=== PATIENT | female | born 1975 | race Caucasian/White ===

== ENCOUNTER 2020-03-18 11:51 | Outpatient (CLI) | payer BC, SELFPAY ==
[2020-03-18 22:31] LABS: SARS-CoV-2 RNA PCR Negative
== END 2020-03-18 11:52 | disposition home or self-care (01) ==
LOC: CHSLAB 11:53
PROVIDERS: PCP Family Medicine; Visit Provider Family Medicine
DX: J01.80 Other acute sinusitis (principal); Z20.828 Contact with and (suspected) exposure to other viral communicable diseases
CPT/HCPCS: 87635; C9803; U0003

== ENCOUNTER 2020-07-14 14:34 | Outpatient (CLI) | payer OTHER, SELFPAY ==
[2020-07-14 15:38] LABS: SARS-CoV-2 Ag Negative (Negative)
[2020-07-15 18:20] LABS: SARS-CoV-2 RNA PCR Negative
== END 2020-07-14 14:35 | disposition home or self-care (01) ==
LOC: CHSLAB 14:38
PROVIDERS: PCP Family Medicine; Visit Provider Family Medicine
DX: Z20.822 Contact with and (suspected) exposure to COVID-19 (principal)
CPT/HCPCS: 87426; C9803; U0003; U0005

== ENCOUNTER 2023-01-31 10:54 | Outpatient (CLI) | payer OTHER, SELFPAY ==
[2023-01-31 11:10] LABS: Basophils Absolute Auto 0.07 K/mm3 (0.00-0.10); Basophils Percent Auto 0.6 % (0.0-1.0); Eosinophils Percent Auto 0.8 % (1.0-6.0); Hemoglobin 13.7 g/dL (12.0-15.0); Immature Granulocyte Absolute 0.05 K/mm3 (0.00-0.00); Immature Granulocyte Percent A 0.4 % (0.0-0.0); Lymphocytes Percent Auto 20.5 % (18.0-42.0); Mean Corpuscular HGB Conc 33.4 g/dL (32.0-36.0); Mean Corpuscular Hemoglobin 29.7 pg (27.0-31.0); Mean Corpuscular Volume 88.9 fL (78.0-102.0); Mean Platelet Volume 9.9 fl (9.2-11.8); Monocytes Absolute Auto 0.72 K/mm3 (0.10-0.90); Monocytes Percent Auto 5.9 % (2.0-11.0); Neutrophils Absolute Auto 8.7 K/mm3 (1.7-7.2); Neutrophils Percent Auto 71.8 % (50.0-70.0); Platelet Count Result 427 K/mm3 (150-420); Red Blood Count 4.61 M/mm3 (4.20-5.40); Red Cell Distribution Width 13.3 % (11.6-14.4); White Blood Count 12.2 K/mm3 (4.8-10.8)
[2023-01-31 11:42] LABS: Alanine Aminotransferase 11 U/L (14-59); Albumin Level 3.4 g/dL (3.4-5.0); Alkaline Phosphatase 96 U/L (46-116); Anion Gap 9 mmol/L (8-16); Aspartate Amino Transferase < 10 U/L (15-37); Bilirubin,Total 0.5 mg/dL (0.00-1.00); Blood Urea Nitrogen 6 mg/dL (7-18); Calcium 8.7 mg/dL (8.5-10.1); Carbon Dioxide 28 mmol/L (21-32); Chloride 103 mmol/L (98-108); Estimated Glomerular Filt Rate > 60; Glucose 130 mg/dL (70-99); Osmolality Calculated 289 mOsm/kg (285-295); Potassium 3.4 mmol/L (3.5-5.1); Sodium 140 mmol/L (136-145); Total Protein 6.8 g/dL (6.4-8.2)
== END 2023-01-31 10:55 | disposition home or self-care (01) ==
PROVIDERS: PCP Family Medicine; Visit Provider Family Medicine
DX: K57.92 Diverticulitis of intestine, part unspecified, without perforation or abscess without bleeding (principal)
CPT/HCPCS: 36415; 80053; 85025

== ENCOUNTER 2023-04-30 15:35 | Outpatient (RCR) | payer OTHER, SELFPAY ==
--- NOTE | 2023-04-30 16:59 | OPREHPOC ---
Outpatient Therapy Plan of Care This is a Multidisciplinary Plan of Care that may contain components documented by all disciplines (PT, OT, and ST.) PT Problem 1 PT Problem #1 Knowledge Deficit PT Goal 1 Goal The patient will be independent in a home exercise program. Target Visit 4 PT Problem 2 PT Problem #2 Impaired Vestibular Syste PT Goal 1 Goal The patient will demonstrate no nystagmus or vertigo with the right Yoana Hallpike test indicating resolved vestibular symptoms. Target Visit 4 PT Problem 3 PT Problem #3 Impaired Functional ADLs PT Goal 1 Goal Patient to return to all previous activities without vertigo. Target Visit 4
--- NOTE | 2023-04-30 17:02 | PTOPEVAL1 ---
Assessment and note entered by Keiko Dietrich, PT Evaluation Information Assessment Status Evaluation Diagnosis BPPV Onset 04/24/23 Subjective Information Tara Germain reports she had an onset of vertigo on 04/24/23 that started spontaneously. She is noting difficulty going from sitting to laying and vice versa. She is unable to look down, to the right, drive, or go up and down stairs. She has laundry in the basement and has been unable to perform laundry or other house chores. 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 She works with her so he is able to drive her to work. She has had vertigo in the past dating back to 2000. She has had little bouts of it since then but it usually goes away within a day. She reports the first time she had vertigo it started after getting a facial and she laid in the chair for 3 hours. She did a telehealth appointment on 04/27/23 and was prescribed meclizene but the pharmacy was unable to fill it until yesterday. Reported Pain Level Pain Score 0: Self Report Assessment PT Clinical Summary Tara Germain presents with positional vertigo that started on 04/24/23. She is unable to look down, to the right, bend over, lay down, or drive. This leads to limitations with working, performing household tasks, and performing bathing and grooming. She objectively demonstrates mild vertigo symptoms with the right Tabor Hallpike test. She will benefit from skilled PT to address these limitations. Plan of Care Interventions Neuro Re-education,Patient/Caregiver Educati,Other Other Interventions vestibular rehab PT Services Indicated Yes Treatment Frequency and 2 times a week for 4 visits Duration These treatments will address the objective and functional deficits as defined above. The patient will be advanced safely and appropriately in order for the patient to progress towards his/her prior level of function. Additional exercises will be introduced and as well as a comprehensive home exercise program upon discharge, if needed, ?to ensure carryover of functional gains achieved in the clinic. This treatment plan has been reviewed and agreement upon by the patient.
--- NOTE | 2023-05-02 16:25 | OPREHPOC ---
Outpatient Therapy Plan of Care This is a Multidisciplinary Plan of Care that may contain components documented by all disciplines (PT, OT, and ST.) PT Problem 1 PT Problem #1 Knowledge Deficit PT Goal 1 Goal The patient will be independent in a home exercise program. Target Visit 4 Progress Met PT Problem 2 PT Problem #2 Impaired Vestibular Syste PT Goal 1 Goal The patient will demonstrate no nystagmus or vertigo with the right Rumsey Hallpike test indicating resolved vestibular symptoms. Target Visit 4 Progress Met PT Problem 3 PT Problem #3 Impaired Functional ADLs PT Goal 1 Goal Patient to return to all previous activities without vertigo. Target Visit 4 Progress Met
--- NOTE | 2023-05-02 16:25 | PTOPDC ---
Assessment and note entered by Keiko Dietrich, PT Evaluation Information Assessment Status Discharge Diagnosis BPPV Onset 04/24/23 Subjective Information Tara Germain reports she has not had vertigo symptoms since she received positional treatments in PT on 04/30/23 with the exception of mild vertigo when she turned to quickly at work yesterday. She notes the vertigo subsided within a second or two. She has been able to return to all previous work and daily activities. Reported Pain Level Pain Score 0: Self Report Assessment PT Clinical Summary Tara Germain has attended 2 skilled PT visit for BPPV. She received the Carolyn maneuver for her right side on her first visit and was having no symptoms during the last set. She returned today for follow up and all vestibular testing is within normal limits. She was discharged and give a handout for the home Carolyn manuever should symptoms return. Plan of Care PT Services Indicated No
== END 2023-05-02 16:31 | disposition home or self-care (01) ==
LOC: CHSPT 15:35
PROVIDERS: PCP Family Medicine; Visit Provider Family Medicine
DX: H81.11 Benign paroxysmal vertigo, right ear (principal)
CPT/HCPCS: 97110; 97112; 97161

== ENCOUNTER 2023-07-10 15:17 | Outpatient (CLI) | payer OTHER, SELFPAY ==
--- NOTE | ~2023-07-10 | XR_ITS ---
EXAMINATION: XR chest 2V DATE: 07/10/2023 15:34 INDICATION: Streptococcal pharyngitis. Cough. TECHNIQUE: Frontal and lateral views of the chest were obtained. COMPARISON: None. FINDINGS: There is no pneumonia, pleural effusion, or pneumothorax. The heart size is normal. There a re surgical clips in the abdomen. IMPRESSION: 1. No acute cardiopulmonary disease. Reviewed, dictated and finalized at location E. [employer]
== END 2023-07-10 15:18 | disposition home or self-care (01) ==
LOC: CHSIMG 15:19
PROVIDERS: PCP Family Medicine; Visit Provider Family Medicine
DX: J02.0 Streptococcal pharyngitis (principal)
CPT/HCPCS: 71046

== ENCOUNTER 2023-12-26 10:57 | Outpatient (CLI) | payer OTHER, SELFPAY ==
--- NOTE | ~2023-12-26 | XR_ITS ---
EXAM: XR lumbar spine 2-3V DATE: 12/26/2023 11:23 HISTORY: Radicupoapthy lumbar region injured back this A.M. taking . COMPARISON: 10/01/2018. FINDINGS: 5 nonrib-bearing lumbar-type vertebral bodies. Pedicles intact. 2 mm retrolisthesis at L2- 3. Vertebral body heights preserved. Mild disc space narrowing at L1-2 through L4-5. Mild marginal os teophytosis at L1-2 and L2-3. Moderate mid and lower lumbar facet arthropathy. No fracture or disloca tion. Close cystectomy clips IMPRESSION: Grade 1 retrolisthesis at L2-3. Mild multilevel degenerative disc disease. Moderate mid a nd lower lumbar facet arthropathy. Reviewed, dictated and finalized at location K. IMPRESSION: Grade 1 retrolisthesis at L2-3. Mild multilevel degenerative disc d isease. Moderate mid and lower lumbar facet arthropathy.
== END 2023-12-26 10:58 | disposition home or self-care (01) ==
LOC: CHSIMG 11:00
PROVIDERS: PCP Family Medicine; Visit Provider Family Medicine
DX: M54.16 Radiculopathy, lumbar region (principal); M43.16 Spondylolisthesis, lumbar region; M51.36 Other intervertebral disc degeneration, lumbar region
CPT/HCPCS: 72100